=== PATIENT | male | born 1980 | race American Indian/Alaskan Native ===

== ENCOUNTER 2020-10-08 07:47 | Emergency (ER) | payer SELFPAY ==
[2020-10-08] MEDS ORDERED: ONDANSETRON 4 MG/2 ML INJ IV ONE (13:04)
[2020-10-08] MEDS ORDERED: MORPHINE 4 MG/1 ML INJ IV ONE (13:04)
--- NOTE | 2020-10-08 13:53 | Emergency Department Report ---
ED General Adult HPI - General Chief complaint: Fever Stated complaint: FEVER/WEAKNESS Time Seen by Provider: 10/08/20 11:31 Source: patient Mode of arrival: Ambulatory Limitations: No Limitations - History of Present Illness Initial comments: Patient complains of rectal pain x5 days and fevers, chills, and body aches for 4 days. He reports a temp of 103, 105, and states it has now been persistently staying at 99.7 F. He rates his rectal pain as a 9/10 in severity and denies any abdominal pain or urinary symptoms/penile discharge. Patient reports he thought he had hemorrhoids, however he has never been diagnosed by a medical professional. He admits to 3 days of constipation, and denies any hematochezia/melena or low back pain. No other prior medical history per patient. Patient also denies any cough, shortness of breath, loss of taste/s carol, or nausea/vomiting. Severity scale (0 -10): 8 - Related Data Previous Rx's Medication Instructions Recorded Last Taken Type cephALEXin [Keflex] 500 mg PO Q8HR 7 Days #21 cap 10/08/20 Unknown Rx oxyCODONE /ACETAMINOPHEN [Percocet 1 tab PO Q4HR PRN #40 tab 10/08/20 Unknown Rx 5/325] Allergies Allergy/AdvReac Type Severity Reaction Status Date / Time No Known Allergies Allergy Unverified 10/08/20 07:50 ED Review of Systems ROS: Stated complaint: FEVER/WEAKNESS Other details as noted in HPI Constitutional: chills, fever. denies: diaphoresis, malaise, weakness Cardiovascular: denies: chest pain Gastrointestinal: denies: abdominal pain, nausea, vomiting Genitourinary: denies: urgency, dysuria, frequency, hematuria, discharge Musculoskeletal: denies: back pain Skin: denies: change in color Neurological: denies: numbness, paresthesias ED Past Medical Hx - Past Medical History Previous Medical History?: No - Surgical History Past Surgical History?: No - Social History Smoking Status: Current Every Day Smoker Substance Use Type: None - Medications Home Medications: Home Medications Medication Instructions Recorded Confirmed Last Taken Type cephALEXin [Keflex] 500 mg PO Q8HR 7 Days #21 cap 10/08/20 Unknown Rx oxyCODONE /ACETAMINOPHEN [Percocet 1 tab PO Q4HR PRN #40 tab 10/08/20 Unknown Rx 5/325] ED Physical Exam - General Limitations: No Limitations General appearance: alert, in no apparent distress - Head Head exam: Present: atraumatic, normocephalic - Eye Eye exam: Present: normal appearance - Cardiovascular Cardiovascular Exam: Present: regular rate, normal rhythm. Absent: systolic murmur, diastolic murmur, rubs, gallop - GI/Abdominal GI/Abdominal exam: Present: soft, normal bowel sounds. Absent: distended, guarding, rebound, rigid - Rectal Rectal exam: Present: normal rectal tone, tenderness, other (Perianal induration noted with significant tenderness to palpation; no area of fluctuance is noted). Absent: bloody stool, hemorrhoids, mass - Extremities Exam Extremities exam: Present: full ROM - Back Exam Back exam: Present: full ROM. Absent: paraspinal tenderness, vertebral tenderness - Neurological Exam Neurological exam: Present: alert, oriented X3 - Psychiatric Psychiatric exam: Present: normal affect, normal mood - Skin Skin exam: Present: warm, dry, intact ED Course Vital Signs 10/08/20 10/08/20 10/08/20 07:54 13:56 18:10 Temperature 98.8 F 98.8 F Pulse Rate 77 71 Respiratory 16 16 19 Rate Blood Pressure 112/58 Blood Pressure 114/76 [Right] O2 Sat by Pulse 99 95 Oximetry 10/08/20 10/08/20 10/08/20 18:15 18:20 18:30 Temperature Pulse Rate 68 65 64 Respiratory 19 14 15 Rate Blood Pressure 121/64 117/73 118/67 Blood Pressure [Right] O2 Sat by Pulse 95 99 97 Oximetry 10/08/20 10/08/20 10/08/20 18:45 19:00 19:15 Temperature Pulse Rate 62 64 63 Respiratory 15 14 16 Rate Blood Pressure 122/67 120/70 124/73 Blood Pressure [Right] O2 Sat by Pulse 97 96 96 Oximetry ED Medical Decision Making - Lab Data Result diagrams: 10/08/20 13:54 10/08/20 13:54 - Radiology Data Radiology results: report reviewed CT ABDOMEN AND PELVIS WITH CONTRAST HISTORY: perirectal pain and induration, fevers omni 300 100ml . COMPARISON: None. TECHNIQUE: Helical CT images of the abdomen and pelvis were obtained following administration of intravenous contrast. Sagittal and coronal reformatted images were reviewed. All CT scans at this location are performed using CT dose reduction for ALARA by means of automated exposure control. CONTRAST: 100 ml of intravenous contrast administered. FINDINGS: Abdomen/pelvis: There is an ill-defined fluid collection surrounding the lower rectum with subtle peripheral enhancement consistent with perirectal abscess measuring 3.4 x 2.7 x 3.8 cm. The remaining bowel loops are unremarkable. The appendix is not confidently identified. The liver, biliary system, pancreas, spleen, kidneys, adrenal glands, vascular structures and bladder are unremarkable. Lungs/bones: No significant abnormality. IMPRESSION: Perirectal abscess is suspected as outlined above. Signer Name: Evangelist Hernandez Jr, MD - Medical Decision Making Patient complains of rectal pain x5 days and fevers, chills, and body aches for 4 days. He reports a temp of 103, 105, and states it has now been persistently staying at 99.7 F. He rates his rectal pain as a 9/10 in severity and denies any abdominal pain or urinary symptoms/penile discharge. Patient reports he thought he had hemorrhoids, however he has never been diagnosed by a medical professional. He admits to 3 days of constipation, and denies any hematochezia/melena or low back pain. No other prior medical history per patient. Patient also denies any cough, shortness of breath, loss of taste/smell, or nausea/vomiting. White count noted to be 14.[address] shows perirectal abscess. Discussed patient with Dr. Wallace, general surgery, who is to admit patient for I&D. Patient's pain is controlled at this time and his vitals are stable. Discussed findings with patient and need for surgical drainage, he is agreeable to care plan Critical care attestation.: If time is entered above; I have spent that time in minutes in the direct care of this critically ill patient, excluding procedure time. ED Disposition Clinical Impression: Perirectal abscess Disposition: 09 ADMITTED INPATIENT Is pt being admited?: No Condition: Stable Instructions: Anorectal Abscess Additional Instructions: REMOVE PACKING IN 2 DAYS, THEN COVER WITH DRY GUAZE (TAKE 2 PAIN PILLS BEFORE DR AGUERO CHANGE) FOLLOW-UP IN 2 WEEKS, CALL TO SCHEDULE APPOINTMENT Prescriptions: cephALEXin [Keflex] 500 mg PO Q8HR 7 Days #21 cap oxyCODONE /ACETAMINOPHEN [Percocet 5/325] 1 tab PO Q4HR PRN #40 tab PRN Reason: Pain, Moderate (4-6) Referrals: PRIMARY CARE,MD [Primary Care Provider] - 3-5 Days
[2020-10-08 14:38] LABS: Alanine Aminotransferase 13 units/L (7-56); Albumin 3.8 g/dL (3.9-5); BUN/Creatinine Ratio 13; Blood Urea Nitrogen 12 mg/dL (9-20); Calcium 8.9 mg/dL (8.4-10.2); Hemolysis Index 11
[2020-10-08 15:39] LABS: Basophils # (Auto) 0.1 K/mm3 (0.0-0.1); Basophils % (Auto) 0.7 % (0.0-1.8); Eosinophils % (Auto) 0.1 % (0.0-4.3); Hematocrit 34.9 % (35.5-45.6); Lymphocytes # (Auto) 2.2 K/mm3 (1.2-5.4); Lymphocytes % (Auto) 15.5 % (13.4-35.0); Mean Corpuscular HGB Conc 34 % (32-34); Mean Corpuscular Volume 87 fl (84-94); Monocytes # (Auto) 1.1 K/mm3 (0.0-0.8); Monocytes % (Auto) 7.8 % (0.0-7.3); Platelet Count 289 K/mm3 (140-440); Red Blood Count 4.03 M/mm3 (3.65-5.03); Red Cell Distribution Width 13.4 % (13.2-15.2)
--- NOTE | 2020-10-08 15:42 | Cat Scan Report ---
CT ABDOMEN AND PELVIS WITH CONTRAST HISTORY: perirectal pain and induration, fevers omni 300 100ml . COMPARISON: None. TECHNIQUE: Helical CT images of the abdomen and pelvis were obtained following administration of intr avenous contrast. Sagittal and coronal reformatted images were reviewed. All CT scans at this [facility] are performed using CT dose reduction for ALARA by means of automated exposure control. CONTRAST: 100 ml of intravenous contrast administered. FINDINGS: Abdomen/pelvis: There is an ill-defined fluid collection surrounding the lower rectum with subtle pe ripheral enhancement consistent with perirectal abscess measuring 3.4 x 2.7 x 3.8 cm. The remaining b owel loops are unremarkable. The appendix is not confidently identified. The liver, biliary system, pancreas, spleen, kidneys, adrenal glands, vascular structures and bladder are unremarkable. Lungs/bones: No significant abnormality. IMPRESSION: Perirectal abscess is suspected as outlined above. Signer Name: Evangelist Hernandez Jr, MD Signed: 10/08/2020 3:38 PM Workstation Name: [id number]
[2020-10-08] MEDS ORDERED: SODIUM CHLORIDE 0.9% 1000 ML 1,000 ML IV ONE (16:14)
[2020-10-08] MEDS ORDERED: metroNIDAZOLE/NS 500 MG/100 ML 500 MG/100 ML BAG IV ONE (16:14)
[2020-10-08] MEDS ORDERED: PIPERACIL/TAZOBACTA 4.5/NS 100 4.5 GM/100 ML VIAL IV ONE (16:14)
--- NOTE | 2020-10-08 17:00 | Anesthesia Consultation ---
Anesthesia Consult and Med Hx Date of service: 10/08/20 - Airway Anesthetic Teeth Evaluation: Good ROM Head & Neck: Adequate Mental/Hyoid Distance: Adequate Mallampati Class: Class II Intubation Access Assessment: Probably Good - Pre-Operative Health Status ASA Pre-Surgery Classification: ASA2, Emergency Proposed Anesthetic Plan: General - Pulmonary Hx Smoking: Yes (quit 1 wk ago) Hx Respiratory Symptoms: No - Cardiovascular System Hx Hypertension: No Hx Heart Attack/AMI: No - Central Nervous System CVA: No - Endocrine Hx Renal Disease: No Hx Liver Disease: No Hx Insulin Dependent Diabetes: No Hx Non-Insulin Dependent Diabetes: No Hx Thyroid Disease: No - Other Systems Hx Obesity: No - Additional Comments Anesthesia Medical History Comments: No hx anesthetic complications. Presenting for I&D perirectal abscess.
--- NOTE | 2020-10-08 17:00 | Anesthesia Day of Surgery ---
Anesthesia Day of Surgery - Day of Surgery Patient Examined: Yes Patient H&P Reviewed: Yes Patient is NPO: Yes (water 1500; solids 0900)
[2020-10-08] MEDS ORDERED: HYDROmorphone 1 MG/1 ML INJ ONE (17:08)
[2020-10-08] MEDS ORDERED: MIDAZOLAM 2 MG/2 ML INJ ONE (17:09)
[2020-10-08] MEDS ORDERED: propofoL 200 MG/20 ML VIAL IV ONE (17:09)
[2020-10-08] MEDS ORDERED: LIDOCAINE MPF (2%) 20 MG/1 ML VIAL 5 ML ONE (17:12)
[2020-10-08] MEDS ORDERED: SODIUM CHLORIDE 0.9% 1000 ML 1,000 ML ONE (17:13)
[2020-10-08] MEDS ORDERED: HYDROmorphone 1 MG/1 ML INJ IV PRN (17:30)
[2020-10-08] MEDS ORDERED: ONDANSETRON 4 MG/2 ML INJ IV PRN (17:30)
--- NOTE | 2020-10-08 17:33 | History and Physical Report ---
History of Present Illness Date of examination: 10/08/20 Chief complaint: Perirectal pain History of present illness: 40 yo male with 5 day h/o progressively severe right perirectal pain, fever and chills. Medications and Allergies Allergies Allergy/AdvReac Type Severity Reaction Status Date / Time No Known Allergies Allergy Unverified 10/08/20 07:50 Active Meds: Active Medications Hydromorphone HCl (Hydromorphone 1 Mg/1 Ml Inj) 0.5 mg IV Q10MIN PRN PRN Reason: Pain , Severe (7-10) Ondansetron HCl (Ondansetron 4 Mg/2 Ml Inj) 4 mg IV ONCE PRN PRN Reason: Nausea And Vomiting Review of Systems All systems: negative (none) Exam Vital Signs Temp Pulse Resp BP Pulse Ox 98.8 F 77 16 114/76 99 10/08/20 07:54 10/08/20 07:54 10/08/20 07:54 10/08/20 07:54 10/08/20 07:54 - General physical appearance Positive: well developed, well nourished, no distress - Eyes Positive: PERRL, normal occular movement - ENT Positive: normal pinna, normal nares, normal mucosa, no hearing loss, no congestion - Neck Positive: no masses, no bruits, trachea midline, no venous distension - Respiratory Positive: normal expansion, normal respiratory effort, clear to auscultation - Cardiovascular Rhythm: regular Heart Sounds: Present: S1 & S2. Absent: rub, click - Extremities Extremities: no ischemia, pulses symmetrical, No edema - Breasts Breasts: normal, no mass, no skin changes - Abdomen Abdomen: Present: soft, bowel sounds normal. Absent: tender, distended Hernia: none - Genitourinary Male Genitourinary: normal Female Genitourinary: normal - Rectum Rectum: other (There is a tender, firm abscess at 4 o'clock with the pt in a knee chest postion.) - Integumentary no rash, no growths, no abnormal pigmentation - Neurologic Neurologic: alert and oriented to time, place and person, motor strength and sensation are grossly intact - Musculoskeletal normal gait, normal posture - Psychiatric Psychiatric: appropriate mood/affect, intact judgment & insight Results - Labs 10/08/20 13:54 10/08/20 13:54 Abnormal lab results 10/08/20 10/08/20 Range/Units 13:54 13:54 WBC 14.2 H (4.5-11.0) K/mm3 Hct 34.9 L (35.5-45.6) % [place] % (Auto) 7.8 H (0.0-7.3) % [place] # (Auto) 1.1 H (0.0-0.8) K/mm3 Seg Neutrophils % 75.9 H (40.0-70.0) % Seg Neutrophils # 10.8 H (1.8-7.7) K/mm3 Sodium 132 L (137-145) mmol/L Chloride 95.4 L (98-107) mmol/L Glucose 102 H (75-100) mg/dL Total Protein 8.6 H (6.3-8.2) g/dL Albumin 3.8 L (3.9-5) g/dL Diabetes panel 10/08/20 Range/Units 13:54 Sodium 132 L (137-145) mmol/L Potassium 4.5 (3.6-5.0) mmol/L Chloride 95.4 L (98-107) mmol/L Carbon Dioxide 29 (22-30) mmol/L BUN 12 (9-20) mg/dL Creatinine 0.9 (0.8-1.3) mg/dL Glucose 102 H (75-100) mg/dL Calcium 8.9 (8.4-10.2) mg/dL AST 16 (5-40) units/L ALT 13 (7-56) units/L Alkaline Phosphatase 91 (35-129) units/L Total Protein 8.6 H (6.3-8.2) g/dL Albumin 3.8 L (3.9-5) g/dL Calcium panel 10/08/20 Range/Units 13:54 Calcium 8.9 (8.4-10.2) mg/dL Albumin 3.8 L (3.9-5) g/dL Pituitary panel 10/08/20 Range/Units 13:54 Sodium 132 L (137-145) mmol/L Potassium 4.5 (3.6-5.0) mmol/L Chloride 95.4 L (98-107) mmol/L Carbon Dioxide 29 (22-30) mmol/L BUN 12 (9-20) mg/dL Creatinine 0.9 (0.8-1.3) mg/dL Glucose 102 H (75-100) mg/dL Calcium 8.9 (8.4-10.2) mg/dL Adrenal panel 10/08/20 Range/Units 13:54 Sodium 132 L (137-145) mmol/L Potassium 4.5 (3.6-5.0) mmol/L Chloride 95.4 L (98-107) mmol/L Carbon Dioxide 29 (22-30) mmol/L BUN 12 (9-20) mg/dL Creatinine 0.9 (0.8-1.3) mg/dL Glucose 102 H (75-100) mg/dL Calcium 8.9 (8.4-10.2) mg/dL Total Bilirubin 0.30 (0.1-1.2) mg/dL AST 16 (5-40) units/L ALT 13 (7-56) units/L Alkaline Phosphatase 91 (35-129) units/L Total Protein 8.6 H (6.3-8.2) g/dL Albumin 3.8 L (3.9-5) g/dL - Imaging CT scan - abdomen: report reviewed CT scan - pelvis: report reviewed Assessment and Plan - Patient Problems (1) Perirectal abscess Current Visit: Yes Status: Acute Plan to address problem: 1) IV Ancef 2) To OR for I&D
[2020-10-08 17:39] LABS: Bacteria,Urine 1+ /HPF (Negative); Bilirubin,Urine NEG (Negative); Blood,Urine MOD (Negative); Color,Urine Yellow (Yellow); Mucus,Urine 1+ /HPF; Protein,Urine <15 mg/dL mg/dL (Negative)
[2020-10-08] MEDS ORDERED: LIDOCAINE 1%/EPINEPHRINE 1:100,000 VIAL (20 ML) INFILTRATI ONE ×3 (17:47→18:04)
[2020-10-08] MEDS ORDERED: BUPIVACAINE/PF (0.25%) 2.5 MG/ML 30 ML VIAL INFILTRATI ONE (17:47)
[2020-10-08] MEDS ORDERED: KETOROLAC 30 MG/1 ML INJ ONE (18:01)
[2020-10-08] MEDS ORDERED: SODIUM CHLORIDE 0.9% IRR 1,500 ML BOTTLE IR ONE (18:05)
[2020-10-08] MEDS ORDERED: ceFAZolin 1 GM VIAL ONE (18:07)
--- NOTE | 2020-10-08 18:09 | Procedure Note ---
Date of procedure: 10/08/20 Pre-op diagnosis: Rectal abscess Post-op diagnosis: same Procedure: 1) I&D of rectal abscess 2) FNA of rectal abscess Description of procedure: Pt was placed supine on the OR table. General anesthesia was administered. Pt was repositioned to a dorsal lithotomy position. Perineum and perianal area were prepped and draped. An 18 gauge needle was used to localize the abscess. The aspirated pus was sent for C&S. An incision was then made over the localizing needle until the abscess cavity was entered. A small amount of pus was drained. Wound was irrigated with warm saline. Hemostasis was obtained with the Bovie. Wound was packed open with a dry Kerlix roll followed by dry 4 X 4's, an ABD and mesh underwear. Pt tolerated the procedure well. Pt was taken to PACU in stable condition. Anesthesia: GETA Surgeon: UMA ALBA Estimated blood loss: minimal Pathology: list (C&S) Specimen disposition: to lab Condition: stable Disposition: PACU
[2020-10-08 19:55] VITALS: BP 124/73
--- NOTE | 2020-10-08 20:00 | Post Anesthesia Evaluation ---
- Post Anesthesia Evaluation Patient Participated: Yes Airway Patent: Yes Stable Respiratory Function: Yes Nausea/Vomiting: No Temp > 96.8F: Yes Pain Manageable: Yes Adequeate Hydration: Yes Anesthesia Complications: No
== END 2020-10-08 19:45 | disposition admitted as inpatient to this hospital (09) ==
LOC: ED 07:47
DX: K61.1 Rectal abscess (principal); F17.200 Nicotine dependence, unspecified, uncomplicated; Z79.899 Other long term (current) drug therapy
CPT/HCPCS: 36415; 46040; 74177; 80053; 81001; 85025; 87075; 87086; 87116; 96374; 96375; 99284; J0690; J1170; J1885; J2250; J2270; J2405; J2704; J7030; Q9967; 87076; 87186

== ENCOUNTER 2020-10-12 18:35 | Emergency (ER) | payer OTHER ==
[2020-10-12 18:48] VITALS: BP 119/62
--- NOTE | 2020-10-13 00:42 | Emergency Department Report ---
- General Chief Complaint: Laceration/Recheck/Suture Stated Complaint: POST SURGERY CARE Source: patient Mode of arrival: Ambulatory Limitations: No Limitations - History of Present Illness Initial Comments: Patient is a 40-year-old -[place] male with no past medical history and who is 5 days status post right gluteal cleft and perirectal abscess I&D procedure presents to the ED for wound recheck and packing removal. Patient states that he continues to take antibiotics that were previously prescribed as well as pain medication as needed with food. Patient states that he was supposed to followed up with a general surgeon 3 days ago but was unable to do so, and when he contacted the surgeon's office he was advised to remove the packing himself. Patient states that he was unable to do so and decided come to the ED for evaluation and packing removal. Patient denies fever, chills, nausea, vomiting, numbness and tingling or weakness of lower extremities, urinary or bowel incontinence, saddle paresthesia, back pain, abdominal pain, chest pain or shortness of breath. -: Sudden, days(s) (5) Location: other (right gluteal cleft packed abscess wound) Place: home Patient Tetanus UTD: Yes Context: other (5 days s/p right gluteal cleft abscess I&D procedure) Associated Symptoms: pain - Related Data Previous Rx's Medication Instructions Recorded Last Taken Type cephALEXin [Keflex] 500 mg PO Q8HR 7 Days #21 cap 10/08/20 Unknown Rx oxyCODONE /ACETAMINOPHEN [Percocet 1 tab PO Q4HR PRN #40 tab 10/08/20 Unknown Rx 5/325] Allergies Allergy/AdvReac Type Severity Reaction Status Date / Time No Known Allergies Allergy Verified 10/12/20 18:46 ED Review of Systems ROS: Stated complaint: POST SURGERY CARE Other details as noted in HPI Constitutional: denies: chills, fever Eyes: denies: eye pain, eye discharge, vision change ENT: denies: ear pain, throat pain Respiratory: denies: cough, shortness of breath, wheezing Cardiovascular: denies: chest pain, palpitations Endocrine: no symptoms reported Gastrointestinal: denies: abdominal pain, nausea, diarrhea Genitourinary: denies: urgency, dysuria Musculoskeletal: other (Painful right gluteal cleft parked and open abscess wound from recent I&D procedure). denies: back pain, joint swelling, arthralgia Skin: other (Open right gluteal cleft abscess wound with packing from recent I&D procedure). denies: rash, lesions Neurological: denies: headache, weakness, paresthesias Psychiatric: denies: anxiety, depression Hematological/Lymphatic: denies: easy bleeding, easy bruising ED Past Medical Hx - Past Medical History Hx Hypertension: No Hx Heart Attack/AMI: No Hx Liver Disease: No Hx Renal Disease: No - Social History Smoking Status: Current Every Day Smoker Substance Use Type: None - Medications Home Medications: Home Medications Medication Instructions Recorded Confirmed Last Taken Type cephALEXin [Keflex] 500 mg PO Q8HR 7 Days #21 cap 10/08/20 Unknown Rx oxyCODONE /ACETAMINOPHEN [Percocet 1 tab PO Q4HR PRN #40 tab 10/08/20 Unknown Rx 5/325] ED Physical Exam - General Limitations: No Limitations General appearance: alert, in no apparent distress - Head Head exam: Present: atraumatic, normocephalic, normal inspection - Eye Eye exam: Present: normal appearance, PERRL, EOMI Pupils: Present: normal accommodation - ENT ENT exam: Present: normal exam, normal orophraynx, mucous membranes moist, TM's normal bilaterally, normal external ear exam - Neck Neck exam: Present: normal inspection, full ROM - Respiratory Respiratory exam: Present: normal lung sounds bilaterally. Absent: respiratory distress, wheezes, rales, stridor, chest wall tenderness, accessory muscle use, decreased breath sounds, prolonged expiratory - Cardiovascular Cardiovascular Exam: Present: regular rate, normal rhythm, normal heart sounds. Absent: systolic murmur, diastolic murmur, rubs, gallop - GI/Abdominal GI/Abdominal exam: Present: soft, normal bowel sounds. Absent: tenderness, guarding, rebound, hyperactive bowel sounds, hypoactive bowel sounds, organomegaly - Extremities Exam Extremities exam: Present: normal inspection, full ROM, normal capillary refill - Back Exam Back exam: Present: normal inspection, full ROM. Absent: tenderness, CVA tenderness (R), CVA tenderness (L), muscle spasm, paraspinal tenderness, vertebral tenderness - Neurological Exam Neurological exam: Present: alert, oriented X3, CN II-XII intact, normal gait, reflexes normal - Psychiatric Psychiatric exam: Present: normal affect, normal mood - Skin Skin exam: Present: warm, dry, intact, normal color, other (Open packed right gluteal cleft abscess wound from a recent I&D procedure). Absent: rash ED Course Vital Signs 10/12/20 18:47 Temperature 98.4 F Pulse Rate 90 Respiratory 16 Rate Blood Pressure 119/62 [Left] O2 Sat by Pulse 99 Oximetry ED Medical Decision Making - Medical Decision Making This is a 40-year-old -[place] male with no past medical history and who is 5 days status post right gluteal cleft and perirectal abscess I&D procedure presents to the ED for wound recheck and packing removal. Patient states that he continues to take antibiotics that were previously prescribed as well as pain medication as needed with food. Patient states that he was supposed to followed up with a general surgeon 3 days ago but was unable to do so, and when he contacted the surgeon's office he was advised to remove the packing himself. Patient states that he was unable to do so and decided come to the ED for evaluation and packing removal. In the ED, patient is alert and oriented x3 and is not in any distress. Patient the wound was evaluated and the packing was removed successfully. The wound was then dressed appropriately with 4 x 4 gauze and Tegaderm. Patient tolerated procedure well. Patient was therefore discharged home and advised to continue taking the previously prescribed antibiotics and follow-up with a general surgeon as previously scheduled. Patient is advised return to the ED immediately if symptoms get worse. - Differential Diagnosis Wound dehiscence; cellulitis; hidradenitis; abscess wound Critical care attestation.: If time is entered above; I have spent that time in minutes in the direct care of this critically ill patient, excluding procedure time. ED Disposition Clinical Impression: Abscess packing removal Gluteal cleft wound Qualifiers: Encounter type: subsequent encounter Laterality: right Qualified Code(s): S31.819D - Unspecified open wound of right buttock, subsequent encounter Disposition: 01 HOME / SELF CARE / HOMELESS Is pt being admited?: No Does the pt Need Aspirin: No Condition: Stable Instructions: Wound Infection, [id number], Surgical Wound Debridement, Care After Additional Instructions: Continue taking the previously prescribed antibiotics, and pain medicine as needed with food. Follow-up with the general surgeon Dr. Wallace as previously scheduled. Otherwise follow-up with your primary care physician in 7 to 10 days for reevaluation. Return to the ED immediately if symptoms get worse. Referrals: [facility] [Provider Group] - 3-5 Days UMA WALLACE MD [Staff Physician] - 7-10 days Time of Disposition: 00:42 Print Language: LUXEMBOURGER
== END 2020-10-13 13:54 | disposition home or self-care (01) ==
LOC: ED 18:35
DX: S31.819D Unspecified open wound of right buttock, subsequent encounter (principal); F17.200 Nicotine dependence, unspecified, uncomplicated; Z79.899 Other long term (current) drug therapy; X58.XXXD Exposure to other specified factors, subsequent encounter
CPT/HCPCS: 99282

== ENCOUNTER 2021-04-05 15:07 | Emergency (ER) | payer SELFPAY ==
[2021-04-05 15:48] VITALS: BP 106/62
[2021-04-05] MEDS ORDERED: LIDOCAINE-MPF (1%) 10 MG/1 ML VIAL 5 ML INFILTRATI ONE (16:24)
--- NOTE | 2021-04-05 16:29 | Emergency Department Report ---
ED General Adult HPI - General Chief complaint: Skin Rash Stated complaint: SKIN RASH,SWOLLEN GROAING Time Seen by Provider: 04/05/21 16:08 Source: patient Mode of arrival: Ambulatory Limitations: No Limitations - History of Present Illness Initial comments: Report red rash over entire body for a week and also states he has a poss STD with swelling in the groin area. Also reports hx of hemorrhoidectomy abd states he is having complications from the hemorrhoidectomy -: days(s) Location: pelvis, genitals Radiation: non-radiation Severity scale (0 -10): 3 Consistency: constant Improves with: none, immobilization - Related Data Previous Rx's Medication Instructions Recorded Last Taken Type cephALEXin [Keflex] 500 mg PO Q8HR 7 Days #21 cap 10/08/20 Unknown Rx oxyCODONE /ACETAMINOPHEN [Percocet 1 tab PO Q4HR PRN #40 tab 10/08/20 Unknown Rx 5/325] Doxycycline Monohydrate 100 mg PO BID #14 cap 04/05/21 Unknown Rx Valacyclovir HCl [Valtrex] 1,000 mg PO BID #20 04/05/21 Unknown Rx Allergies Allergy/AdvReac Type Severity Reaction Status Date / Time No Known Allergies Allergy Verified 10/12/20 18:46 ED Review of Systems ROS: Stated complaint: SKIN RASH,SWOLLEN GROAING Other details as noted in HPI Constitutional: denies: chills, fever Eyes: denies: eye pain, eye discharge, vision change ENT: denies: ear pain, throat pain Respiratory: denies: cough, shortness of breath, wheezing Cardiovascular: denies: chest pain, palpitations Endocrine: no symptoms reported Gastrointestinal: denies: abdominal pain, nausea, diarrhea Genitourinary: denies: urgency, dysuria Musculoskeletal: denies: back pain, joint swelling, arthralgia Skin: denies: rash, lesions Neurological: denies: headache, weakness, paresthesias Psychiatric: denies: anxiety, depression Hematological/Lymphatic: denies: easy bleeding, easy bruising ED Past Medical Hx - Past Medical History Previous Medical History?: Yes Hx Hypertension: No Hx Heart Attack/AMI: No Hx Liver Disease: No Hx Renal Disease: No - Surgical History Past Surgical History?: Yes Additional Surgical History: hemorrhoidectomy - Social History Smoking Status: Current Every Day Smoker Substance Use Type: None - Medications Home Medications: Home Medications Medication Instructions Recorded Confirmed Last Taken Type cephALEXin [Keflex] 500 mg PO Q8HR 7 Days #21 cap 10/08/20 Unknown Rx oxyCODONE /ACETAMINOPHEN [Percocet 1 tab PO Q4HR PRN #40 tab 10/08/20 Unknown Rx 5/325] Doxycycline Monohydrate 100 mg PO BID #14 cap 04/05/21 Unknown Rx Valacyclovir HCl [Valtrex] 1,000 mg PO BID #20 04/05/21 Unknown Rx ED Physical Exam - General Limitations: No Limitations General appearance: alert, in no apparent distress - Head Head exam: Present: atraumatic, normocephalic - Eye Eye exam: Present: normal appearance - ENT ENT exam: Present: mucous membranes moist - Neck Neck exam: Present: normal inspection - Respiratory Respiratory exam: Present: normal lung sounds bilaterally. Absent: respiratory distress - Cardiovascular Cardiovascular Exam: Present: regular rate, normal rhythm. Absent: systolic murmur, diastolic murmur, rubs, gallop - GI/Abdominal GI/Abdominal exam: Present: soft, normal bowel sounds - Rectal Rectal exam: Present: deferred - Expanded Exam Expanded Male exam: Present: penile swelling, lesions, erythema - Extremities Exam Extremities exam: Present: normal inspection - Back Exam Back exam: Present: normal inspection - Neurological Exam Neurological exam: Present: alert, oriented X3 - Psychiatric Psychiatric exam: Present: normal affect, normal mood - Skin Skin exam: Present: warm, dry, intact, normal color. Absent: rash ED Course Vital Signs 04/05/21 15:45 Temperature 99.9 F H Pulse Rate 105 H Respiratory 20 Rate Blood Pressure 106/62 [Right] O2 Sat by Pulse 98 Oximetry - Reevaluation(s) Reevaluation #1: 04/05/21 16:28 pt has an appt with surgery for hymorrhoids, penile discharge noted rocephin shot given Critical care attestation.: If time is entered above; I have spent that time in minutes in the direct care of this critically ill patient, excluding procedure time. ED Disposition Clinical Impression: Herpes genitalis, Gonorrhea, Ureteritis Disposition: HOME / SELF CARE / HOMELESS Is pt being admited?: No Does the pt Need Aspirin: No Condition: Stable Instructions: Gonorrhea Test, Gonorrhea, Genital Herpes Prescriptions: Doxycycline Monohydrate 100 mg PO BID #14 cap Valacyclovir HCl [Valtrex] 1,000 mg PO BID #20 Referrals: PRIMARY CARE, [Primary Care Provider] - 3-5 Days
== END 2021-04-05 17:06 | disposition home or self-care (01) ==
LOC: ED 15:07
DX: A60.00 Herpesviral infection of urogenital system, unspecified (principal); A54.9 Gonococcal infection, unspecified; N28.89 Other specified disorders of kidney and ureter; F17.200 Nicotine dependence, unspecified, uncomplicated
CPT/HCPCS: 96372; 99282; J0696; J3490